=== PATIENT | female | born 1975 | race Two or more races ===

== ENCOUNTER 2024-04-21 14:36 | Inpatient (IN) | payer MEDICAID, OTHER ==
[~2024-04-21] VITALS: Ht 157.5 cm; Wt 95.1 kg
[2024-04-21] MEDS: HYDROcodone-ACET 7.5/325MG TAB PO ONE (15:30)
[2024-04-21 16:18] LABS: Basophils # (auto) 0 10 ^3/uL (0-0.2); Basophils % (auto) 0.5 % (0.0-2.0); Eosinophils # (auto) 0.5 10 ^3/uL (0-0.8); Eosinophils % (auto) 5.1 % (0.0-7.0); Hemoglobin 11.8 g/dL (12.2-16.2); Lymphocytes # (auto) 3.5 10 ^3/uL (0.4-5.4); Lymphocytes % (auto) 37.3 % (10.0-50.0); Mean Corpuscular Hemoglobin 27.8 pg (28.0-32.0); Mean Corpuscular Hgb Conc. 33.9 g/dL (32.0-36.0); Mean Corpuscular Volume 82.1 fL (80.0-100.0); Monocytes # (auto) 0.4 10 ^3/uL (0-1.3); Monocytes % (auto) 4.8 % (0.0-12.0); Neutrophils # (auto) 4.9 10 ^3/uL (1.6-8.6); Neutrophils % (auto) 52.3 % (37.0-80.0); Nucleated Red Blood Cells % 0.1 %; Platelet Count (auto) 375 10^3/uL (140-450); Red Blood Cells 4.26 10^6/uL (4.0-5.20); Red Cell Distribution Width 13.7 % (11.8-14.3); White Blood Cell 9.3 10^3/uL (4.4-10.8)
[2024-04-21 16:29] LABS: Urine Amorphous Crystal FEW /hpf (None Seen); Urine Bacteria FEW /hpf (None Seen); Urine Blood 2+ /uL (Negative); Urine Clarity Ex.Turbid (Clear); Urine Color Yellow (Yellow); Urine Mucus FEW (None Seen); Urine Protein, UAD 1+ (Negative); Urine Specific Gravity 1.031 (1.001-1.035); Urine Urobilinogen 2 mg/dL (Negative); Urine WBC 304 /hpf (0 - 5); Urine pH 5.5 (5.0-9.0)
[2024-04-21 16:30] LABS: Chloride 105 mmol/L (98-107); Potassium 3.5 mmol/L (3.5-5.1); Sodium 138 mmol/L (136-145)
[2024-04-21 16:31] LABS: Anion Gap 7 (5-15); Carbon Dioxide 26 mmol/L (20-30)
[2024-04-21 16:32] LABS: Calcium 9.8 mg/dL (8.7-10.4)
[2024-04-21 16:37] LABS: BUN/Creatinine Ratio 22.5 (10.0-20.0); Blood Urea Nitrogen 16 mg/dL (9-23); Glucose 134 mg/dL (74-106)
[2024-04-21] MEDS ORDERED: LEVO500T91 PO (16:42)
[2024-04-21 16:49] VITALS: PULSE 130; RESP 20; O2SAT 95
[2024-04-21] MEDS: dilTIAZem 25 MG/5 ML VIAL IV ONE (18:05)
[2024-04-21] MEDS: cefTRIAXone 1GM/50ML D5W 50 ML IV SCH (18:15)
[2024-04-21] MEDS ORDERED: NITROGLYCERIN 0.4 MG SL TAB SL PRN (19:30)
[2024-04-21] MEDS ORDERED: MORPHINE SULFATE INJ 2 MG/ml SYRG IV PRN (19:30)
[2024-04-21] MEDS ORDERED: ONDANSETRON HCL 4 MG/2 ML VIAL IV PRN (19:30)
[2024-04-21] MEDS ORDERED: DEXTROSE (50%) 50ML SYRG IV PRN (19:30)
[2024-04-21] MEDS ORDERED: DOCUSATE SOD 100 MG CAP PO PRN (19:30)
[2024-04-21] MEDS: SODIUM CHLORIDE 0.9% 1,000 ML IV SCH (21:13)
[2024-04-21] MEDS: InsuLIN REG 1unit/0.01ml Soln (100units/ml) SC SCH (21:45)
[2024-04-21] MEDS: ACCU-CHEK COMFORT CURVE STRIP VI SCH (21:45)
[2024-04-22] VITALS (8 sets, daily range): BP systolic 114–136; BP diastolic 70–80; PULSE 86–102; RESP 18–22; TEMP 98–98.8; O2SAT 91–98
[2024-04-22] MEDS ORDERED: GLIP5TAB21 PO (00:46)
[2024-04-22] MEDS ORDERED: AMLO1TAB23 PO (00:46)
[2024-04-22] MEDS ORDERED: GABA-1250 PO (00:46)
[2024-04-22] MEDS ORDERED: LOSA-535 PO (00:46)
[2024-04-22] MEDS ORDERED: SEMA4INJ SC (00:46)
[2024-04-22] MEDS ORDERED: ATOR20TA50 PO (00:46)
[2024-04-22] MEDS ORDERED: METF-372 PO (00:46)
[2024-04-22 07:06] LABS: Basophils # (auto) 0 10 ^3/uL (0-0.2); Basophils % (auto) 0.5 % (0.0-2.0); Eosinophils # (auto) 0.6 10 ^3/uL (0-0.8); Eosinophils % (auto) 7.3 % (0.0-7.0); Hematocrit 29.9 % (36.0-46.0); Hemoglobin 10.2 g/dL (12.2-16.2); Lymphocytes # (auto) 3.2 10 ^3/uL (0.4-5.4); Lymphocytes % (auto) 40.2 % (10.0-50.0); Mean Corpuscular Hemoglobin 28.3 pg (28.0-32.0); Mean Corpuscular Hgb Conc. 34.2 g/dL (32.0-36.0); Mean Corpuscular Volume 82.8 fL (80.0-100.0); Monocytes # (auto) 0.5 10 ^3/uL (0-1.3); Monocytes % (auto) 6.3 % (0.0-12.0); Neutrophils # (auto) 3.6 10 ^3/uL (1.6-8.6); Neutrophils % (auto) 45.7 % (37.0-80.0); Nucleated Red Blood Cells % 0.1 %; Platelet Count (auto) 278 10^3/uL (140-450); Red Blood Cells 3.62 10^6/uL (4.0-5.20); Red Cell Distribution Width 13.2 % (11.8-14.3); White Blood Cell 7.8 10^3/uL (4.4-10.8)
[2024-04-22 07:16] LABS: Alanine Aminotransferase 25 U/L (7-40); Albumin 3.5 g/dL (3.2-4.8); Alkaline Phosphatase 60 U/L (46-116); Anion Gap 5 (5-15); Aspartate Aminotransferase 11 U/L (13-40); BUN/Creatinine Ratio 27.1 (10.0-20.0); Bilirubin, Total 0.3 mg/dL (0.2-1.0); Blood Urea Nitrogen 13 mg/dL (9-23); Carbon Dioxide 25 mmol/L (20-30); Chloride 110 mmol/L (98-107); Glucose 99 mg/dL (74-106); Potassium 3.8 mmol/L (3.5-5.1); Sodium 140 mmol/L (136-145); Total Protein 6.7 g/dL (5.7-8.2)
[2024-04-22] MEDS ORDERED: CIPR500T4 PO (15:30)
== END 2024-04-22 17:30 | disposition home or self-care (01) | DRG 463 ==
LOC: ER 14:36 → TELE-CENTR 19:30 → TELE 19:30 → TELE-CENTR 23:43
PROVIDERS: ADMIT Nurse Practitioner Family; ATTEND Nurse Practitioner Family
DX: N10 Acute pyelonephritis (principal); K80.10 Calculus of gallbladder with chronic cholecystitis without obstruction; E11.9 Type 2 diabetes mellitus without complications; I10 Essential (primary) hypertension; K42.9 Umbilical hernia without obstruction or gangrene; K57.30 Diverticulosis of large intestine without perforation or abscess without bleeding; Z98.51 Tubal ligation status
CPT/HCPCS: 36415; 74176; 76705; 80048; 80053; 81001; 82962; 83605; 84484; 85025; 87086; 93005; 96365; 96375; G0378; J1815